=== PATIENT | male | born 1955 | race Caucasian/White ===

== ENCOUNTER → 2021-10-29 | Outpatient (CLI) | payer MEDICARE, OTHER ==
[2021-10-29 08:28] LABS: BASO % 0.4 % (0.0-1.0); EOS # 0.1 10*3/uL (0.0-0.4); EOS % 1.3 % (1.0-4.0); HEMATOCRIT 44.9 % (42.0-52.0); LYMPH # 2.6 10*3/uL (1.3-4.4); LYMPH % 36.3 % (27.0-41.0); MEAN CELL VOLUME 89.6 fl (80.0-94.0); MEAN CORPUSCULAR HGB 30.7 pg (27.0-31.0); MEAN CORPUSCULAR HGB CONC 34.3 g/dl (33.0-37.0); MEAN PLATELET VOLUME 8.4 fl (9.6-12.3); MONO # 0.5 10*3/uL (0.1-1.0); MONO % 7.5 % (3.0-9.0); NEUT # 3.8 10*3/uL (2.3-7.9); NEUT % 54.4 % (47.0-73.0); PLATELET COUNT AUTOMATED 294 10*3/uL (130-400); RED BLOOD COUNT 5.01 10*6/uL (4.50-5.90)
[2021-10-30 04:06] LABS: HEP B CORE AB, IGM Negative (Negative); HEPATITIS B SURFACE AG Negative (Negative); HEPATITIS C VIRUS ANTIBODY <0.1 s/co (0.0-0.9)
[2021-10-30 05:06] LABS: RHEUMATOID FACTOR 10.9 IU/mL (<14.0)
[2021-11-01 11:06] LABS: LUPUS DRVVT 33.8 sec (0.0-47.0); PTT-LA 29.8 sec (0.0-51.9)
[2021-11-01 12:06] LABS: LUPUS REFLEX INTERPRETATION Comment: (.)
[2021-11-01 16:07] LABS: ANTI-RNP ANTIBODIES 0.4 AI (0.0-0.9)
[2021-11-02 02:06] LABS: CCP ANTIBODIES IGG/IGA 11 units (0-19)
[2021-11-04 16:08] LABS: HLA-B27 ANTIGEN Negative (.)
== END | disposition home or self-care (01) ==
LOC: LAB 08:09
PROVIDERS: ATTEND Orthopaedic Surgery
DX: M25.561 Pain in right knee (principal); M79.609 Pain in unspecified limb; Z01.89 Encounter for other specified special examinations; R53.83 Other fatigue